=== PATIENT | female | born 1990 | race Caucasian/White ===

== ENCOUNTER 2018-11-27 15:06 | Emergency (ER) | payer SELFPAY ==
[~2018-11-27] VITALS: Ht 154.9 cm; Wt 65.8 kg
[2018-11-27 15:10] VITALS: BP 133/88
--- NOTE | 2018-11-27 15:14 | NUR ---
Patient ambulated to bed 11. RN evaluating patient at bedside.
--- NOTE | 2018-11-27 15:27 | NUR ---
pt bib self with c/o RLQ pain x1 week radiating down right leg, denies N/V .c/o chills, denies fever at this time. had common cold two weeks before. per pt, pain gets worse with walking and to touch since yesterday. pain 10/03 . denies any past medical hx. no known allergy to any meds. er md to see pt. hx denies
[2018-11-27] MEDS: IBUPROFEN 800 MG TAB PO ONE (16:05)
--- NOTE | 2018-11-27 17:05 | NUR ---
Patient discharged with v/s stable. Written and verbal after care instructions given and explained. Patient alert, oriented and verbalized understanding of instructions. Ambulatory with steady gait. All questions addressed prior to discharge. ID band removed. Patient advised to follow up with PMD. Rx of SIMETHICONE 80 MG given. Patient educated on indication of medication including possible reaction and side effects. Opportunity to ask questions provided and answered.
[2018-11-27 17:06] VITALS: BP 128/82
== END 2018-11-27 17:05 | disposition home or self-care (01) ==
LOC: MED 15:06
DX: R14.0 Abdominal distension (gaseous) (principal); R11.2 Nausea with vomiting, unspecified; R10.31 Right lower quadrant pain
CPT/HCPCS: 74018; 81002; 81025; 99283; Q0092